=== PATIENT | female | born 1985 | race Caucasian/White ===

== ENCOUNTER 2016-08-18 07:29 | Inpatient (IN) | payer BC ==
[~2016-08-18] VITALS: Ht 162.6 cm; Wt 86.4 kg
[2016-08-18] VITALS (18 sets, daily range): BP systolic 103–143; BP diastolic 55–87
[2016-08-18] MEDS ORDERED: AMARYL2 MG PO (08:20)
[2016-08-18] MEDS ORDERED: EXPECTA PRENAT1 EACH PO (08:21)
[2016-08-18] MEDS ORDERED: UNISOM SLEEP AI25 MG PO (08:21)
[2016-08-18 09:32] LABS: EOSINOPHIL (%) 0.4 % (0-5); HEMATOCRIT 34.7 % (36.0-46.0); IMMATURE GRANULOCYTE (%) 0.2 % (0.0-0.7); IMMATURE GRANULOCYTE COUNT 0.1 K/uL; LYMPHOCYTE COUNT 1.3 K/uL (1.0-2.8); MCH 27.6 PG (29.0-34.0); MCHC 33.1 G/DL (30.0-36.0); MCV 83.4 FL (83-99); MEAN PLAT.VOLUME 11.6 uM^3 (9.5-12.4); MONOCYTE COUNT 0.4 K/uL (0-0.8); NEUTROPHIL (%) 64.3 % (45-76); NEUTROPHIL COUNT 3.2 K/uL (1.8-6.4); PLATELET COUNT 181 K/uL (156-360); RBC DIS.WIDTH-CV 14.6 % (11.8-14.6); RBC DIS.WIDTH-SD 43.1 % (39-53); RED BLOOD COUNT 4.16 M/uL (3.80-5.20); WHITE BLOOD COUNT 4.9 K/uL (4.1-10.2)
[2016-08-18] MEDS ORDERED: IBUPROFEN800 MG PO (16:03)
[2016-08-19 07:25] VITALS: BP 122/69
[2016-08-19 15:01] VITALS: BP 119/73
== END 2016-08-19 19:20 | disposition home or self-care (01) | DRG 775 ==
LOC: LDRP-OP 07:29 → 2WEST 07:30 → LDRP-OP 10:35 → 2WEST 15:32 → LDRP-OP 10-02 17:00
PROVIDERS: Nurse Practitioner
DX: O14.94 Unspecified pre-eclampsia, complicating childbirth (principal); O24.425 Gestational diabetes mellitus in childbirth, controlled by oral hypoglycemic drugs; O69.81X0 Labor and delivery complicated by cord around neck, without compression, not applicable or unspecified; O99.214 Obesity complicating childbirth; E66.9 Obesity, unspecified; Z68.30 Body mass index [BMI] 30.0-30.9, adult; Z3A.39 39 weeks gestation of pregnancy; Z37.0 Single live birth
CPT/HCPCS: 85025; C1755; J3010; J7120